=== PATIENT | female | born 1985 | race Caucasian/White ===

== ENCOUNTER 2022-08-26 21:59 | Emergency (ER) | payer OTHER ==
[2022-08-26 22:04] VITALS: RESP 18; TEMP 98.4
[2022-08-26] MEDS ORDERED: LACTATED RINGERS SOLUTION 1000 ML INFUS.BAG IV ONE (22:45)
[2022-08-26] MEDS ORDERED: HYDROmorphone HCl 2 MG/ML VIAL IVPB ONE (22:58)
[2022-08-26] MEDS ORDERED: ACETAMINOPHEN 1000 MG/100 ML BAG IVPB ONE (22:59)
[2022-08-26 23:28] LABS: URINE APPEARANCE CLEAR; URINE BILIRUBIN NEGATIVE (NEGATIVE); URINE COLOR YELLOW; URINE GLUCOSE (UA) NEGATIVE (NEGATIVE); URINE KETONE NEGATIVE (NEGATIVE); URINE LEUK ESTERASE NEGATIVE (NEGATIVE); URINE NITRITE NEGATIVE (NEGATIVE); URINE PROTEIN NEGATIVE (NEGATIVE)
[2022-08-26 23:31] LABS: HCG,QUALITATIVE URINE Negative
[2022-08-26] MEDS ORDERED: HYDROmorphone HCl 2 MG/ML VIAL ONE (23:32)
[2022-08-26] MEDS ORDERED: ACETAMINOPHEN INJECTION 100 ML IVPB ONE (23:32)
[2022-08-26 23:44] LABS: HEMATOCRIT 26.5 % (32.4-45.2); MCH 37.9 pg (25.7-33.7); MCHC 33.8 g/dl (32.0-36.0); MEAN CELL VOLUME 112.1 fl (80-96); MEAN PLT VOLUME 7.5 fl (7.5-11.1); PLATELET COUNT 298 10^3/uL (134-434); RBC 2.36 M/mm3 (3.60-5.2)
[2022-08-27 00:05] LABS: CALCIUM 8.4 mg/dL (8.5-10.1)
[2022-08-27 00:06] LABS: ALBUMIN 3.7 g/dl (3.4-5.0); BLOOD UREA NITROGEN 10.6 mg/dL (7-18)
[2022-08-27 00:09] LABS: CREATININE 0.4 mg/dL (0.55-1.3)
[2022-08-27 00:10] LABS: TOT PROT 8.3 g/dl (6.4-8.2)
[2022-08-27 00:11] LABS: BILIRUBIN,TOTAL 0.4 mg/dL (0.2-1)
[2022-08-27 01:59] LABS: CALCIUM 8.4 mg/dL (8.5-10.1)
[2022-08-27 01:59] LABS: RETICULOCYTES 5.44 % (0.5-1.5)
[2022-08-27 02:00] LABS: BLOOD UREA NITROGEN 10.3 mg/dL (7-18)
[2022-08-27 02:03] LABS: CREATININE 0.5 mg/dL (0.55-1.3)
[2022-08-27] MEDS ORDERED: HYDROmorphone HCl 2 MG/ML VIAL IVPB ONE (02:27)
[2022-08-27 02:33] VITALS: BP 127/71; PULSE 57
[2022-08-27] MEDS ORDERED: HYDROmorphone HCl 2 MG/ML VIAL ONE (02:33)
[2022-08-27 03:39] LABS: ANISOCYTOSIS 1+; MACROCYTOSIS 1+
== END 2022-08-27 03:04 | disposition home or self-care (01) ==
LOC: JER 21:59
PROC: 3E033NZ Introduction of Analgesics, Hypnotics, Sedatives into Peripheral Vein, Percutaneous Approach (ICD-10-PCS; principal; 2022-08-26)
PROC: 3E033GC Introduction of Other Therapeutic Substance into Peripheral Vein, Percutaneous Approach (ICD-10-PCS; 2022-08-26)
PROC: 3E033GC Introduction of Other Therapeutic Substance into Peripheral Vein, Percutaneous Approach (ICD-10-PCS; 2022-08-27)
PROC: 3E033GC Introduction of Other Therapeutic Substance into Peripheral Vein, Percutaneous Approach (ICD-10-PCS; 2022-08-27)
DX: D57.219 Sickle-cell/Hb-C disease with crisis, unspecified (principal); R06.02 Shortness of breath; R07.89 Other chest pain; Z20.822 Contact with and (suspected) exposure to COVID-19
CPT/HCPCS: 0241U-QW; 36415; 71046-TC-FY; 80048; 80053; 81003; 84484; 84702; 84703; 85025; 85045; 87086; 93005; 93010; 99285-25